=== PATIENT | female | born 1975 | race Caucasian/White ===

== ENCOUNTER 2016-11-10 06:59 | Day surgery (SDC) | payer MEDICAID ==
[2016-11-10] MEDS ORDERED: HYDROCODONE/APAP 5/325MG TABLET PO ONE (14:33)
[2016-11-10] MEDS ORDERED: KETOROLAC 30 MG/ML VIAL IVP ONE (16:08)
[2016-11-10] MEDS ORDERED: LIDOCAINE 2% MDV (20MG/ML) 20ML VIAL IV ONE (16:08)
[2016-11-10] MEDS ORDERED: MIDAZOLAM HCL 2MG/2ML VIAL IV ONE (16:08)
[2016-11-10] MEDS ORDERED: FENTANYL PF 100MCG/2ML VIAL IV ONE (16:08)
[2016-11-10] MEDS ORDERED: PROPOFOL 10 MG/ML VIAL IV ONE (16:08)
--- NOTE | 2016-11-14 13:00 | Operative Note ---
DATE OF SURGERY: 11/10/2016 PREOPERATIVE DIAGNOSIS: Dysfunctional uterine bleeding. POSTOPERATIVE DIAGNOSIS: Dysfunctional uterine bleeding. OPERATION: D&C, , NovaSure ablation. Surgeon: Rose Mary Dunham DO Anesthesia: General. COMPLICATIONS: None. ESTIMATED BLOOD LOSS: Minimal. HISTORY: This is a 41-year-old white female with prolonged menstrual periods. She has small and large clots with them. She is currently on control pills, but had a tubal ligation and does not want to continue the control pills. FINDINGS DURING PROCEDURE: Proliferative lining noted. PROCEDURE: The patient is prepped for surgery and brought back to the operating suite. She was placed under general anesthesia. She was sterilely prepped and draped in the dorsal lithotomy position. A weighted speculum was placed in the vaginal vault. A single-tooth tenaculum was used to cotton picker the anterior lip of the cervix. The cervix was serially dilated to 14 Romanian. The hysteroscope was then placed. The above findings were noted. The hysteroscope was removed. Curettings were obtained. The uterus sounded to 11 cm. The NovaSure device was placed. The cavity length was 5.5 cm, the cavity width was 3 cm. It passed testing. It ran for 90 seconds. The NovaSure device was removed. The tenaculum was removed. One of the sites was oozing. Silver nitrate was used to cauterize that area. The patient was then awakened from general anesthesia and brought back to the recovery room in satisfactory condition. Rose Mary Dunham DO [facility]adan
== END 2016-11-10 10:07 | disposition home or self-care (01) ==
LOC: SUR 06:59
PROVIDERS: ATTEND Obstetrics & Gynecology
DX: N39.8 Other specified disorders of urinary system (principal); I10 Essential (primary) hypertension; R68.89 Other general symptoms and signs
CPT/HCPCS: 58563; 00952; J1885; J3010